=== PATIENT | male | born 1940 | race Caucasian/White ===

== ENCOUNTER → 2016-12-22 | Outpatient (CLI) | payer MEDICARE | END | disposition home or self-care (01) | LOC: PCVCIMAG 09:55 | PROVIDERS: ATTEND Internal Medicine Cardiovascular Disease | DX: I73.9 Peripheral vascular disease, unspecified (principal); E78.00 Pure hypercholesterolemia, unspecified; I25.10 Atherosclerotic heart disease of native coronary artery without angina pectoris; J44.9 Chronic obstructive pulmonary disease, unspecified; I10 Essential (primary) hypertension; Z95.820 Peripheral vascular angioplasty status with implants and grafts | CPT/HCPCS: 93005; 93978; G0463 ==

== ENCOUNTER → 2017-08-05 | Outpatient (CLI) | payer MEDICARE ==
[~2017-08-05] MED LIST: REGADENOSON 0.4 MG/5 ML DISP.SYRIN. IV ONE
--- NOTE | 2017-08-05 09:21 | PCVCIMAG ---
APPROVED REPORT Laterality: Bilateral Patient Location: Out-Patient Indications Stenosis Doppler Spectral Velocity Analysis PSV / EDVPSV / EDV ECA (R) 90 / 5 cm/sECA (L) 65 / 4 cm/s dICA (R) 87 / 26 cm/sdICA (L) 78 / 23 cm/s Kasey (R) 69 / 21 cm/smICA (L) 87 / 26 cm/s pICA (R) 40 / 9 cm/spICA (L) 64 / 22 cm/s Bulb (R) 45 / 9 cm/sBulb (L) 52 / 12 cm/s dCCA (R) 59 / 7 cm/sdCCA (L) 56 / 12 cm/s mCCA (R) 72 / 6 cm/smCCA (L) 75 / 14 cm/s Vert (R) 38 / 8 cm/sVert (L) 66 / 15 cm/s ICA/CCA ICA/CCA Findings The right carotid bulb has no significant plaque. The right proximal internal carotid artery shows no significant stenosis. The right common carotid artery shows no significant stenosis. The right external carotid artery shows no significant stenosis. The left carotid bulb has mild plaque. The left proximal internal carotid artery shows no significant stenosis. The left common carotid artery shows no significant stenosis. The left external carotid artery shows no significant stenosis. Conclusion 1. No significant stenosis involving either carotid artery 2. Antegrade vertebral flow
--- NOTE | 2017-08-05 15:31 | PCVCIMAG ---
APPROVED REPORT Study performed: 08/05/2017 13:22:55 EXAM: Comprehensive 2D, Doppler, and color-flow Echocardiogram Patient Location: Echo lab Room #: 2Status: routine BSA: 1.70 HR: 70 bpmBP: 126/84 mmHg Rhythm: sinus arrhythmia Other Information Study Quality: Technically Difficult Indications Dyspnea CAD Palpitations S/P Stents 2D Dimensions LVEF(%): 36.33 (>50%) IVSd: 8.00 (7-11mm)LVOT Diam: 18.59 (18-24mm) LVDd: 33.35 mm PWd: 7.38 (7-11mm) LVDs: 27.72 (25-40mm) Left Atrium: 24.77 (27-40mm) Aortic Root: 19.88 mm LV Single Plane 4CH: 50.39 % LV Single Plane 2CH: 59.08 %Wiseman's LVEF: 54.74 % Biplane EF: 54.8 % Volumes Left Atrial Volume (Systole) Single Plane 4CH: 23.99 mLSingle Plane 2CH: 16.47 mL Biplane LA Volume: 23.00 mLLA ESV Index: 14.00 mL/m2 Aortic Valve AoV Peak Dipak.: 1.34 m/s AO Peak Gr.: 7.29 mmHgLVOT Max P.07 mmHg LVOT Max V: 0.71 m/s MIGUELANGEL Vmax: 1.44 cm2 AI Vmax: 4.39 m/s AI [place]: 2.51 m/s2 AI PHT: 509.08 ms Mitral Valve E/A Ratio: 0.6 MV Decel. Time: 272.57 ms MV E Max Dipak.: 0.46 m/s MV A Dipak.: 0.75 m/s IVRT: 121.11 ms TDI E/Lateral E': 23.00E/Medial E': 6.57 Medial E' Dipak.: 0.07 m/s Lateral E' Dipak.: 0.02 m/s Tricuspid Valve TV Vmax: 0.50 m/s Left Ventricle The left ventricle is normal size. There is normal LV segmental wall motion. There is normal left ventricular wall thickness. Left ventricular systolic function is normal. The left ventricular ejection fraction is within the normal range. LVEF is 50-55%. The left ventricular diastolic function is normal. Right Ventricle The right ventricle is normal size. The right ventricular systolic function is normal. Atria The left atrium size is normal. The right atrium size is normal. Aortic Valve The aortic valve is not well visualized but appears to function normally. Moderate aortic regurgitation. There is no aortic valvular stenosis. Mitral Valve The mitral valve is normal in structure. There is no mitral valve regurgitation noted. No evidence of mitral valve stenosis. Tricuspid Valve The tricuspid valve is normal in structure. There is no tricuspid valve regurgitation noted. Pulmonic Valve Pulmonic valve is not well visualized. Not seen Great Vessels The aortic root is not well visualized but is probably normal size. The ascending aorta is borderline dilated. IVC is not well visualized. Pericardium There is no pericardial effusion. There is no pleural effusion. <Conclusion> The left ventricle is normal size. LVEF is 50-55%. The left ventricular diastolic function is normal. The right ventricle is normal size. The left atrium size is normal. The right atrium size is normal. The aortic valve is not well visualized but appears to function normally. Moderate aortic regurgitation. There is no aortic valvular stenosis. There is no mitral valve regurgitation noted. There is no tricuspid valve regurgitation noted. There is no pericardial effusion.
--- NOTE | 2017-08-05 15:35 | PCVCIMAG ---
APPROVED REPORT Exam: Nuclear Stress Test Indication: Dyspnea, CAD, Mild CM Patient Location: Out-Patient Stress Nurse: Taylor Luu RN, RAUL Hamm Tech:Sami TITUS MoreiraB Ht: 5 ft 8 in Wt: 136 lbs BSA: 1.73 m2 HR: 71 bpm BP: 194/82 mmHg BMI: 20.6 Rhythm: SR, PAC's Medical History Medical History: Age, Hyperlipidemia, PVD, COPD, Former Smoker Medications: ASA, Atrovastatin, Plavix, Flexeril, Irbesartan, Metoprolol Allergies: PCN Previous Cardiac Procedures: PCI, JUDITH, RCA, 2010 Pretest Chest Pain Characteristics: No chest pain Exercise History: Physically active Meds Held (24 hrs): Metoprolo NM EXAM: Myocardial Perfusion REST/STRESS Imaging Protocol: Rest Tc-99m/Stress Tc-99m 1 day Resting Data Rest SPECT myocardial perfusion imaging was performed in supine position 45 minutes following the intravenous injection of 9.3 mCi of Tc-99m Sestamibi. Time of rest injection: 0910 Date: 08/05/2017 Pharmacologic Stress Pharmacologic stress test was performed by injecting Regadenoson 0.4 mg IV push followed by the intravenous injection of 27.2 mCi of Tc-99m Sestamibi. Time of stress injection: 1045 Date: 08/05/2017 The images were gated to evaluate regional wall motion and calculate left ventricular ejection fraction. Study Quality Study: Good Study Data Post stress, the left ventricular ejection was 56%.. SSS: 5 SRS: 9 SDS: 0 TID = 0.88. 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 Post stress, the left ventricular ejection was 56%.. No change since prior study dated April 2015. Interpreted by: Home Lion MD Electronically Approved: 08/05/2017 13:15:18 Stress Test Details Stress Test: Pharmacologic stress testing performed using 0.4 mg of regadenoson per 5 mL given IV over 10 seconds. Reason for pharmacologic stress test: physical limitation. HR Resting HR: 71 bpmMax Heart Rate (APMHR): 145 bpm Max HR Achieved: 96 bpmTarget HR (85% APMHR): 123 bpm % of APMHR: 66 Recovery HR: 80 bpm BP Resting BP: 194/82 mmHg Max BP: 174/77 mmHg ECG Resting ECG: Sinus Rhythm, PACs Stress ECG: Sinus Rhythm, PACs Recovery ECG: Sinus Rhythm, PACs Recovery ST Change: None Clinical Reason for Termination: Completed protocol Stress Symptoms: Abdominal Pain, Lightheaded Stress ECG Conclusion ECG: Non-ischemic <Conclusion> ECG: Non-ischemic
== END | disposition home or self-care (01) ==
LOC: PCVCIMAG 07:44
PROVIDERS: ATTEND Internal Medicine Cardiovascular Disease
DX: I65.22 Occlusion and stenosis of left carotid artery (principal); I25.10 Atherosclerotic heart disease of native coronary artery without angina pectoris; I42.9 Cardiomyopathy, unspecified; K52.9 Noninfective gastroenteritis and colitis, unspecified; E78.00 Pure hypercholesterolemia, unspecified; I10 Essential (primary) hypertension; I77.9 Disorder of arteries and arterioles, unspecified; J44.9 Chronic obstructive pulmonary disease, unspecified; I49.1 Atrial premature depolarization; I73.9 Peripheral vascular disease, unspecified; Z87.891 Personal history of nicotine dependence; Z79.82 Long term (current) use of aspirin; Z79.899 Other long term (current) drug therapy; Z88.0 Allergy status to penicillin
CPT/HCPCS: 78452; 80061; 93017; 93306; 93880; A9500; G0463; J2785

== ENCOUNTER → 2018-05-20 | Outpatient (CLI) | payer MEDICARE | END | disposition home or self-care (01) | LOC: PCVCCLINIC 12:09 | DX: I25.10 Atherosclerotic heart disease of native coronary artery without angina pectoris (principal); I25.5 Ischemic cardiomyopathy; I10 Essential (primary) hypertension; E78.00 Pure hypercholesterolemia, unspecified; I73.9 Peripheral vascular disease, unspecified; J44.9 Chronic obstructive pulmonary disease, unspecified; R06.09 Other forms of dyspnea; Z87.891 Personal history of nicotine dependence; Z79.82 Long term (current) use of aspirin; Z88.0 Allergy status to penicillin | CPT/HCPCS: 80061; 93005; G0463 ==

== ENCOUNTER → 2019-02-14 | Outpatient (CLI) | payer MEDICARE | END | disposition home or self-care (01) | LOC: PCVCCLINIC 11:53 | PROVIDERS: ATTEND Internal Medicine Cardiovascular Disease | DX: I25.10 Atherosclerotic heart disease of native coronary artery without angina pectoris (principal); E78.00 Pure hypercholesterolemia, unspecified; I10 Essential (primary) hypertension; I25.5 Ischemic cardiomyopathy; E78.5 Hyperlipidemia, unspecified; J44.9 Chronic obstructive pulmonary disease, unspecified; Z87.891 Personal history of nicotine dependence; Z79.82 Long term (current) use of aspirin; Z88.0 Allergy status to penicillin | CPT/HCPCS: 36415; 80061; 93005; G0463 ==

== ENCOUNTER → 2019-08-29 | Outpatient (CLI) | payer MEDICARE ==
--- NOTE | 2019-08-29 13:19 | PCVCIMAG ---
APPROVED REPORT Study performed: 08/29/2019 08:51:04 EXAM: Comprehensive 2D, Doppler, and color-flow Echocardiogram Patient Location: Echo lab Status: routine BSA: 1.75 HR: 80 bpmBP: 122/80 mmHg Rhythm: NSR Other Information Study Quality: Technically Difficult Risk Factors: Cardiac Risk Factors: HTN, Hyperlipidemia Indications COPD, Ischemic cardiomyopathy. 2D Dimensions IVSd: 10.27 (7-11mm)LVOT Diam: 18.28 (18-24mm) LVDd: 30.19 mm PWd: 12.45 (7-11mm)Ascending Ao: 32.60 (22-36mm) LVDs: 28.48 (25-40mm) Left Atrium: 32.31 (27-40mm) Aortic Root: 17.25 mm LV Single Plane 4CH: 33.42 % LV Single Plane 2CH: 44.91 % Biplane EF: 41.9 % Volumes Left Atrial Volume (Systole) Single Plane 4CH: 16.40 mLSingle Plane 2CH: 18.89 mL LA ESV Index: 11.00 mL/m2 Aortic Valve AoV Peak Dipak.: 1.50 m/s AO Peak Gr.: 8.95 mmHgLVOT Max P.75 mmHg LVOT Max V: 0.83 m/s MIGUELANGEL Vmax: 1.45 cm2 AI Vmax: 4.11 m/s AI [place]: 2.31 m/s2 AI PHT: 516.44 ms Mitral Valve E/A Ratio: 0.7 MV Decel. Time: 272.04 ms MV E Max Dipak.: 0.57 m/s MV A Dipak.: 0.87 m/s TDI E/Lateral E': 5.70E/Medial E': 9.50 Medial E' Dipak.: 0.06 m/s Lateral E' Dipak.: 0.10 m/s Left Ventricle The left ventricle is normal size. There is normal LV segmental wall motion. There is normal left ventricular wall thickness. Left ventricular systolic function is mildly decreased. LVEF is 45-50%. Grade I - abnormal relaxation pattern. Right Ventricle The right ventricle is normal size. The right ventricular systolic function is normal. Atria The left atrium size is normal. The right atrium size is normal. Aortic Valve The aortic valve is normal in structure. Trace to mild aortic regurgitation. There is no aortic valvular stenosis. Mitral Valve The mitral valve is normal in structure. There is no mitral valve regurgitation noted. No evidence of mitral valve stenosis. Tricuspid Valve The tricuspid valve is normal in structure. There is no tricuspid valve regurgitation noted. Pulmonic Valve The pulmonary valve is normal in structure. There is no pulmonic valvular regurgitation. Great Vessels The aortic root is normal in size. IVC is normal in size and collapses >50% with inspiration. Pericardium There is no pericardial effusion. <Conclusion> The left ventricle is normal size. Left ventricular systolic function is mildly decreased. LVEF is 45-50%. Grade I - abnormal relaxation pattern. The left atrium size is normal. The aortic valve is normal in structure. Trace to mild aortic regurgitation. There is no mitral valve regurgitation noted. There is no tricuspid valve regurgitation noted. The aortic root is normal in size. There is no pericardial effusion.
== END | disposition home or self-care (01) ==
LOC: PCVCIMAG 08:53
PROVIDERS: ATTEND Internal Medicine Cardiovascular Disease
DX: I35.1 Nonrheumatic aortic (valve) insufficiency (principal); I25.5 Ischemic cardiomyopathy; I25.10 Atherosclerotic heart disease of native coronary artery without angina pectoris; J44.9 Chronic obstructive pulmonary disease, unspecified; Z87.891 Personal history of nicotine dependence
CPT/HCPCS: 78452; 93017; 93306; A9500; J2785